=== PATIENT | female | born 1950 | race Caucasian/White ===

== ENCOUNTER 2019-01-26 14:56 | Emergency (ER) | payer MEDICARE, OTHER ==
[2019-01-26] MEDS ORDERED: Acetaminophen/oxyCODONE 325-5 MG Tab PO ONE (15:40)
[2019-01-26 15:47] VITALS: BP 136/80; PULSE 67
--- NOTE | 2019-01-26 16:16 | CR ---
[id number] RAD/RAD Ribs Left W PA Chest EXAM: FRONTAL CHEST, LEFT RIBS 2 VIEWS INDICATION: FALL. COMPARISON: None. DISCUSSION: Minimally displaced lateral fourth, fifth and sixth rib fractures superimposed on multiple chronic appearing left-sided rib fractures. No other acute fractures are identified, but the chronic deformities limit sensitivity. Moderate elevation of the right hemidiaphragm. Borderline heart size without evidence of congestive heart failure. No pneumothorax. IMPRESSION: 1. Acute appearing lateral fourth, fifth and sixth rib fracture superimposed on multiple chronic healed fractures. Corey Mcgraw MD 01/26/19 [id number] Thank you for allowing us to participate in the care of your patient.
[2019-01-26] MEDS ORDERED: Take Home: Acetaminophen/HYDROcodone 325-5 MG, 5 Tab Pack PO ONE (16:24)
[2019-01-26] MEDS ORDERED: Take Home: Ketorolac 10 MG Tab, 4 Tab Pack PO ONE (16:24)
--- NOTE | 2019-01-26 16:28 | EDM.PDOC ---
ED HPI GENERAL MEDICAL PROBLEM - General Chief Complaint: Laceration Stated Complaint: RIB PAIN Time Seen by Provider: 01/26/19 15:20 Source of Information: Reports: Patient History Limitations: Reports: No Limitations - History of Present Illness INITIAL COMMENTS - FREE TEXT/NARRATIVE: Patient comes into the emergency department with complaint of left rib pain. Patient states that she was walking down an incline approximate 3 hours prior to arrival when she fell landing on her left side. Patient states that it is difficult to take a deep breath and hurts to cough. She also states that it is discomforting to touch over that area. She denies any shortness of breath at rest denies, chest pain, or peripheral edema. She also denies hitting her head, loss of consciousness, dizziness, lightheadedness, or headache. She denies any other complaints or concerns Onset: Sudden Location: Reports: Chest Quality: Reports: Throbbing Severity: Mild Improves with: Reports: Immobilization Worsens with: Reports: Movement Context: Reports: Activity Associated Symptoms: Reports: No Other Symptoms Left Thoracic Pain Score (Numeric/FACES): 10 - Related Data Allergies Allergy/AdvReac Type Severity Reaction Status Date / Time No Known Drug Allergies Allergy Other Verified 01/26/19 15:40 Home Meds: Home Meds Simvastatin [Zocor] 80 mg PO BEDTIME 01/29/14 [History] Enalapril/Hydrochlorothiazide [Enalapril-HCTZ 10-25 MG] 1 tab PO DAILY 02/08/16 [History] traMADol [Ultram] 50 mg PO Q6H PRN 02/08/16 [History] Alendronate [Fosamax] 70 mg PO WEEKLY 02/12/16 [History] Gabapentin 300 mg PO DAILY PRN 02/12/16 [History] Calcium Carbonate [Calcium] 500 mg PO BEDTIME 08/02/17 [History] Cyanocobalamin (Vitamin B-12) [Cyanocobalamin Injection] 1,000 mcg IJ Q30D 08/02 [History] glipiZIDE [Glucotrol XL] 10 mg PO DAILY 08/02/17 [History] metFORMIN HCl [Metformin HCl] 1,000 mg PO BID 08/02/17 [History] Albuterol/Ipratropium [DuoNeb 3.0-0.5 MG/3 ML] 3 ml NEB QIDRT #28 [facility] 08/04/17 [ Rx] Aspirin 81 mg PO DAILY 01/26/19 [History] Past Medical History Cardiovascular History: Reports: High Cholesterol 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 Female Surgical History: Reports: Section Musculoskeletal Surgical History: Reports: Ganglion Cyst, Knee Replacement Dermatological Surgical History: Reports: Other (See Below) Social & Family History - Family History Family Medical History: Noncontributory - Tobacco Use Smoking Status *Q: Never Smoker ED ROS GENERAL - Review of Systems Review Of Systems: ROS reveals no pertinent complaints other than HPI. Constitutional: Reports: No Symptoms HEENT: Reports: No Symptoms Respiratory: Reports: No Symptoms Cardiovascular: Reports: No Symptoms GI/Abdominal: Reports: No Symptoms Skin: Reports: No Symptoms Neurological: Reports: No Symptoms Psychiatric: Reports: No Symptoms Hematologic/Lymphatic: Reports: No Symptoms ED EXAM, GENERAL - Physical Exam Exam: See Below Exam Limited By: No Limitations General Appearance: Alert, WD/WN, No Apparent Distress Head: Atraumatic, Normocephalic Neck: Normal Inspection, Supple, Non-Tender, Full Range of Motion Respiratory/Chest: No Respiratory Distress, Lungs Clear, No Accessory Muscle Use , Chest Non-Tender Cardiovascular: Normal Peripheral Pulses, Regular Rate, Rhythm, Other (left side rib cage- tissue swelling and tenderness upon palpation. no bruising or warmth noted ) Back Exam: Normal Inspection Extremities: Normal Inspection, Normal Range of Motion, Non-Tender Neurological: Alert, Oriented, Normal Gait Course - Vital Signs Last Recorded V/S: Last Vital Signs Temp 36.4 C 01/26/19 15:00 Pulse 67 01/26/19 15:00 Resp 16 01/26/19 15:00 BP 136/80 01/26/19 15:00 Pulse Ox 94 L 01/26/19 15:00 - Orders/Labs/Meds Meds: Medications Discontinued Medications Generic Name Dose Route Start Last Admin Trade Name Freq PRN Reason Stop Dose Admin Hydrocodone Bitart/Acetaminophen 1 packet 01/26/19 16:24 01/26/19 16:49 Take Home: Acetam/Hydrocodon 325-5 Mg, 5 Pack PO 01/26/19 16:25 1 packet ONETIME ONE Administration Ketorolac Tromethamine 2 packet 01/26/19 16:24 01/26/19 16:49 Take Home: Ketorolac 10 Mg, 4 Tab Pack PO 01/26/19 16:25 2 packet ONETIME ONE Administration Oxycodone/Acetaminophen 1 tab 01/26/19 15:40 01/26/19 15:58 Percocet 325-5 Mg PO 01/26/19 15:41 1 tab ONETIME ONE Administration Departure - Departure Time of Disposition: 16:40 Disposition: Home, Self-Care 01 Condition: Good Clinical Impression: Rib fracture Qualifiers: Encounter type: initial encounter Rib fracture type: multiple ribs Fracture type: closed Laterality: left Qualified Code(s): S22.42XA - Multiple fractures of ribs, left side, initial encounter for closed fracture - Discharge Information *PRESCRIPTION DRUG MONITORING PROGRAM REVIEWED*: Not Applicable *COPY OF PRESCRIPTION DRUG MONITORING REPORT IN PATIENT LATRICIA: Not Applicable Instructions: Acetaminophen; Hydrocodone tablets or capsules, Ketorolac tablets , Rib Fracture, [id number] Referrals: Everton Hamilton MD [Primary Care Provider] - Forms: ED Department Discharge Additional Instructions: 1. rest 2. Splint the air when coughing only 3. Take 10 deep breaths every hour to help promote lung expansion 4. Take Percocet only for moderate to severe pain 5. take toradol for mild to mod pain 6. Follow up with PCP in a week if not feeling better 7. Call with any questions or concerns 8. Activity and diet as tolerated - Assessment/Plan Assessment:: 1. left rib pain- rib fractures of 4, 5, 6 Plan: 1. xray of left ribs 2. Pain medications provided 3. Education regarding activity, diet, OTC pain medication, deep breathing, and follow up care. 4. All questions and concerns addressed prior to discharge.
== END 2019-01-26 16:50 | disposition home or self-care (01) ==
LOC: VM.ED 14:56
DX: S22.42XA Multiple fractures of ribs, left side, initial encounter for closed fracture (principal); E78.00 Pure hypercholesterolemia, unspecified; E11.9 Type 2 diabetes mellitus without complications; Z79.899 Other long term (current) drug therapy; Z79.84 Long term (current) use of oral hypoglycemic drugs; Z79.82 Long term (current) use of aspirin; W10.2XXA Fall (on)(from) incline, initial encounter
CPT/HCPCS: 71101; 99283; A9270

== ENCOUNTER 2023-02-16 10:40 | Emergency (ER) | payer MEDICARE, OTHER ==
[2023-02-16 10:51] VITALS: BP 146/75; PULSE 65
== END 2023-02-16 12:03 | disposition home or self-care (01) ==
LOC: VM.ED 10:40
DX: S50.02XA Contusion of left elbow, initial encounter (principal); E78.00 Pure hypercholesterolemia, unspecified; I10 Essential (primary) hypertension; E11.9 Type 2 diabetes mellitus without complications; E66.9 Obesity, unspecified; Z68.30 Body mass index [BMI] 30.0-30.9, adult; Z87.891 Personal history of nicotine dependence; Z79.82 Long term (current) use of aspirin; Z79.84 Long term (current) use of oral hypoglycemic drugs; Z79.899 Other long term (current) drug therapy; W18.30XA Fall on same level, unspecified, initial encounter
CPT/HCPCS: 73080-LT; 99283